=== PATIENT | female | born 1970 | race Caucasian/White ===

== ENCOUNTER 2019-03-02 20:01 | Inpatient (IN) | payer MEDICAID ==
[~2019-03-02] VITALS: Ht 170.2 cm; Wt 100.7 kg
[2019-03-02 20:05] VITALS: BP_SYST 130
[2019-03-02] MEDS ORDERED: MYL80 PO (21:05)
[2019-03-02] MEDS ORDERED: ONDA4TAB5 PO (21:05)
[2019-03-02] MEDS ORDERED: LEVE500T99 PO (21:05)
[2019-03-02] MEDS ORDERED: BISA5TAB10 RC (21:05)
[2019-03-02] MEDS ORDERED: LEVA1.2527 INH (21:05)
[2019-03-02] MEDS ORDERED: MELA3TAB64 PO (21:05)
[2019-03-02] MEDS ORDERED: LACT10SO6 PO (21:05)
[2019-03-02] MEDS ORDERED: GABA-531 PO ×2 (21:05)
[2019-03-02] MEDS ORDERED: POLY17PO4 PO (21:05)
[2019-03-02] MEDS ORDERED: DEC4 PO (21:05)
[2019-03-02] MEDS ORDERED: TOP25 PO (21:05)
[2019-03-02] MEDS ORDERED: ACET325C3 PO (21:05)
[2019-03-02] MEDS ORDERED: OXCA300T38 PO (21:05)
[2019-03-02] MEDS ORDERED: OXCA600T5 PO (21:05)
[2019-03-02] MEDS ORDERED: CA/D1TAB7 PO (21:05)
[2019-03-02] MEDS ORDERED: MORPHINE 4 MG/ML INJ. SYRINGE IVP ONE (22:00)
[2019-03-02 22:06] LABS: BASOPHILS # (AUTO) 0.1 K/uL (0.0-0.2); BASOPHILS % (AUTO) 0.8 % (0.0-2.0); EOSINOPHILS # (AUTO) 0.1 K/uL (0.0-0.4); EOSINOPHILS % (AUTO) 0.9 % (0.0-4.0); HEMATOCRIT 36.9 % (36-48); HEMOGLOBIN 12.5 g/dL (12.0-16.0); LYMPHOCYTES # (AUTO) 0.9 K/uL (1.0-5.5); LYMPHOCYTES % (AUTO) 8.8 % (20.5-51.5); MEAN CORPUSCULAR HEMOGLOBIN 34 pg (27-31); MEAN CORPUSCULAR HGB CONC 34 % (32-36); MEAN CORPUSCULAR VOLUME 101 fL (79.0-98.0); NEUTROPHILS # (AUTO) 7.7 K/uL (1.8-7.7); NEUTROPHILS % (AUTO) 79.5 % (40.0-70.0); PLATELET COUNT (AUTO) 199 K/uL (130-430); RED BLOOD CELL COUNT(AUTO) 3.66 MIL/uL (4.2-6.2); RED CELL DISTRIBUTION WIDTH 14.8 % (9.0-15.0); WHITE BLOOD COUNT (AUTO) 9.7 K/uL (4.8-10.8)
[2019-03-02 22:10] LABS: ANION GAP 8 (5-15); CHLORIDE 107 mmol/L (98-107); CREATININE 0.89 mg/dL (0.55-1.30); GLUCOSE 107 mg/dL (70-99); POTASSIUM 3.7 mmol/L (3.5-5.1); SODIUM SERUM 143 mmol/L (136-145); UREA NITROGEN, BLOOD 20 mg/dL (8-21)
[2019-03-02 22:16] LABS: ALANINE AMINOTRANSFERASE 93 U/L (12-78); ALBUMIN 3.1 g/dL (3.4-4.8); ASPARTATE AMINOTRANSFERASE 55 U/L (10-37); TOTAL BILIRUBIN 0.2 mg/dL (0.0-1.0)
[2019-03-02 22:19] LABS: GFR AFRICAN AMERICAN 86 mL/min (>90)
[2019-03-02 22:38] LABS: ALCOHOL, BLOOD < 3 mg/dL (<10)
[2019-03-02 23:28] LABS: PROTHROMBIN TIME 9.6 SECS (9.5-12.5)
[2019-03-03] MEDS ORDERED: TOPIRAMATE 100 MG TABLET(Topamax) PO ONE (01:00)
[2019-03-03] MEDS: OXcarbazepine 150 MG TABLET(TRILEPTAL) PO SCH ×3 (01:00→20:44)
[2019-03-03] MEDS ORDERED: levETIRAcetam 500 MG TABLET PO ONE ×2 (01:00→12:00)
[2019-03-03] MEDS ORDERED: HYDROcodone/ACETAMIN 5-325 MG TAB (NORCO/ VICODIN) PO PRN (02:30)
[2019-03-03] MEDS ORDERED: MORPHINE 2 MG/ML INJ. SYRINGE IVP PRN (02:30)
[2019-03-03] MEDS ORDERED: HYDROcodone/ACETAMIN 10-325 MG TAB PO PRN (02:30)
[2019-03-03] MEDS ORDERED: MORPHINE 2 MG/ML INJ. SYRINGE ONE (03:05)
[2019-03-03 03:20] VITALS: BP_SYST 127
[2019-03-03 05:41] LABS: BILIRUBIN,URINE NEGATIVE (NEGATIVE); BLOOD, URINE TRACE (NEGATIVE); CLARITY/URINE CLEAR (CLEAR); COLOR,URINE YELLOW (YELLOW); GLUCOSE,URINE NEGATIVE (NEGATIVE); KETONES,URINE NEGATIVE (NEGATIVE); LEUKOCYTE ESTERASE ,URINE NEGATIVE (NEGATIVE); NITRITE, URINE NEGATIVE (NEGATIVE); PROTEIN URINE NEGATIVE (NEGATIVE); UROBILINOGEN,URINE 0.2 (0.2-1.0)
[2019-03-03 05:43] LABS: BACTERIA,URINE FEW /HPF (None Seen); WBC,URINE 0-3 /HPF (0-3)
[2019-03-03] MEDS ORDERED: NON-FORMULARY MEDICATION (Acetaminophen 2 CAP) PO PRN (05:45)
[2019-03-03] MEDS ORDERED: ONDANSETRON 4 MG ODT TAB PO SCH (05:45)
[2019-03-03] MEDS ORDERED: ONDANSETRON HCL 4 MG/2 ML VIAL IVP PRN (05:45)
[2019-03-03] MEDS ORDERED: LORazepam 2 MG/ML VIAL IVP PRN (05:45)
[2019-03-03] MEDS: NORMAL SALINE 5 ML DISP.SYRIN IVF SCH ×6 (06:00→20:47)
[2019-03-03] MEDS: SIMETHICONE 80 MG TAB.CHEW PO SCH ×5 (06:08→20:53)
[2019-03-03] MEDS: PANTOPRAZOLE SODIUM 40 MG TAB PO SCH (06:08)
[2019-03-03 07:59] VITALS: BP_SYST 129
[2019-03-03] MEDS ORDERED: OXCARBAZEPINE PO SCH (09:00)
[2019-03-03] MEDS: GABAPENTIN 300 MG CAPSULE PO SCH ×2 (09:16→20:44)
[2019-03-03] MEDS: MORPHINE 4 MG/ML INJ. SYRINGE IVP PRN ×2 (09:25→21:48)
[2019-03-03 09:30] VITALS: BP_SYST 113
[2019-03-03] MEDS: levETIRAcetam 500 MG TABLET PO SCH ×2 (11:58→20:43)
[2019-03-03 12:47] VITALS: BP_SYST 118
[2019-03-03] MEDS: MORPHINE 2 MG/ML INJ. SYRINGE IVP PRN ×2 (13:19→15:52)
[2019-03-03 16:34] VITALS: BP_SYST 116
[2019-03-03 20:00] VITALS: BP_SYST 122
[2019-03-03] MEDS: ACETAMINOPHEN 325 MG TABLET PO PRN (20:46)
[2019-03-04] VITALS: BP_SYST 108
[2019-03-04 00:12] VITALS: BP_SYST 123
[2019-03-04] MEDS: MORPHINE 4 MG/ML INJ. SYRINGE IVP PRN ×4 (04:33→21:28)
[2019-03-04] MEDS: NORMAL SALINE 5 ML DISP.SYRIN IVF SCH ×6 (06:00→20:56)
[2019-03-04] MEDS: PANTOPRAZOLE SODIUM 40 MG TAB PO SCH ×2 (06:11→17:31)
[2019-03-04] MEDS: SIMETHICONE 80 MG TAB.CHEW PO SCH ×4 (06:12→20:55)
[2019-03-04 06:53] LABS: BASOPHILS % (AUTO) 0.3 % (0.0-2.0); EOSINOPHILS # (AUTO) 0.2 K/uL (0.0-0.4); EOSINOPHILS % (AUTO) 2.4 % (0.0-4.0); HEMATOCRIT 36.9 % (36-48); HEMOGLOBIN 12.3 g/dL (12.0-16.0); LYMPHOCYTES # (AUTO) 0.6 K/uL (1.0-5.5); LYMPHOCYTES % (AUTO) 7.1 % (20.5-51.5); MEAN CORPUSCULAR HEMOGLOBIN 34 pg (27-31); MEAN CORPUSCULAR HGB CONC 33 % (32-36); MEAN CORPUSCULAR VOLUME 102 fL (79.0-98.0); NEUTROPHILS # (AUTO) 6.1 K/uL (1.8-7.7); NEUTROPHILS % (AUTO) 77.2 % (40.0-70.0); PLATELET COUNT (AUTO) 173 K/uL (130-430); RED BLOOD CELL COUNT(AUTO) 3.61 MIL/uL (4.2-6.2); RED CELL DISTRIBUTION WIDTH 15.3 % (9.0-15.0); WHITE BLOOD COUNT (AUTO) 7.9 K/uL (4.8-10.8)
[2019-03-04 07:00] LABS: CALCIUM 8.7 mg/dL (8.4-11.0); CREATININE 0.88 mg/dL (0.55-1.30); POTASSIUM 3.7 mmol/L (3.5-5.1)
[2019-03-04] MEDS: MORPHINE 2 MG/ML INJ. SYRINGE IVP PRN (08:17)
[2019-03-04] MEDS: GABAPENTIN 300 MG CAPSULE PO SCH ×2 (08:19→20:55)
[2019-03-04] MEDS: levETIRAcetam 500 MG TABLET PO SCH ×2 (08:19→20:54)
[2019-03-04] MEDS: OXcarbazepine 150 MG TABLET(TRILEPTAL) PO SCH ×2 (09:39→20:55)
[2019-03-04 11:32] VITALS: BP_SYST 136
[2019-03-04 16:33] VITALS: BP_SYST 104
[2019-03-04 20:00] VITALS: BP_SYST 121
[2019-03-05] MEDS: ACETAMINOPHEN 325 MG TABLET PO PRN ×2 (00:04→20:16)
[2019-03-05 01:52] VITALS: BP_SYST 119
[2019-03-05] MEDS: MORPHINE 4 MG/ML INJ. SYRINGE IVP PRN ×3 (02:07→16:47)
[2019-03-05] MEDS: NORMAL SALINE 5 ML DISP.SYRIN IVF SCH ×4 (06:00→23:07)
[2019-03-05 06:11] LABS: CALCIUM 8.4 mg/dL (8.4-11.0); CREATININE 0.74 mg/dL (0.55-1.30); POTASSIUM 3.5 mmol/L (3.5-5.1)
[2019-03-05] MEDS: PANTOPRAZOLE SODIUM 40 MG TAB PO SCH ×2 (06:37→20:16)
[2019-03-05] MEDS: SIMETHICONE 80 MG TAB.CHEW PO SCH ×4 (06:37→21:00)
[2019-03-05 07:29] LABS: BASOPHILS % (AUTO) 0.5 % (0.0-2.0); EOSINOPHILS # (AUTO) 0.1 K/uL (0.0-0.4); EOSINOPHILS % (AUTO) 2.1 % (0.0-4.0); HEMOGLOBIN 11.7 g/dL (12.0-16.0); LYMPHOCYTES # (AUTO) 0.8 K/uL (1.0-5.5); LYMPHOCYTES % (AUTO) 12.2 % (20.5-51.5); MEAN CORPUSCULAR HEMOGLOBIN 34 pg (27-31); MEAN CORPUSCULAR HGB CONC 34 % (32-36); MEAN CORPUSCULAR VOLUME 102 fL (79.0-98.0); MONOCYTES # (AUTO) 0.7 K/uL (0.0-1.0); MONOCYTES % (AUTO) 10.9 % (1.7-9.3); NEUTROPHILS # (AUTO) 4.7 K/uL (1.8-7.7); NEUTROPHILS % (AUTO) 74.3 % (40.0-70.0); PLATELET COUNT (AUTO) 159 K/uL (130-430); RED BLOOD CELL COUNT(AUTO) 3.44 MIL/uL (4.2-6.2); RED CELL DISTRIBUTION WIDTH 14.4 % (9.0-15.0)
[2019-03-05 07:30] VITALS: BP_SYST 117
[2019-03-05 07:44] LABS: WHITE BLOOD COUNT (AUTO) 6.3 K/uL (4.8-10.8)
[2019-03-05] MEDS: OXcarbazepine 150 MG TABLET(TRILEPTAL) PO SCH ×2 (08:33→21:00)
[2019-03-05] MEDS: GABAPENTIN 300 MG CAPSULE PO SCH ×2 (08:33→23:07)
[2019-03-05] MEDS: levETIRAcetam 500 MG TABLET PO SCH ×2 (08:33→21:00)
[2019-03-05 12:35] VITALS: BP_SYST 117
[2019-03-05 16:48] VITALS: BP_SYST 123
[2019-03-05] MEDS: MORPHINE 2 MG/ML INJ. SYRINGE IVP PRN ×2 (20:18→23:42)
[2019-03-06 01:32] VITALS: BP_SYST 185
[2019-03-06] MEDS: MORPHINE 4 MG/ML INJ. SYRINGE IVP PRN ×4 (03:36→22:11)
[2019-03-06] MEDS: ACETAMINOPHEN 325 MG TABLET PO PRN ×4 (04:03→23:49)
[2019-03-06 06:11] LABS: BASOPHILS % (AUTO) 0.5 % (0.0-2.0); EOSINOPHILS # (AUTO) 0.2 K/uL (0.0-0.4); EOSINOPHILS % (AUTO) 2.7 % (0.0-4.0); HEMATOCRIT 36.9 % (36-48); HEMOGLOBIN 12.3 g/dL (12.0-16.0); LYMPHOCYTES # (AUTO) 0.7 K/uL (1.0-5.5); LYMPHOCYTES % (AUTO) 12.5 % (20.5-51.5); MEAN CORPUSCULAR HEMOGLOBIN 34 pg (27-31); MEAN CORPUSCULAR HGB CONC 34 % (32-36); MEAN CORPUSCULAR VOLUME 102 fL (79.0-98.0); MONOCYTES # (AUTO) 0.6 K/uL (0.0-1.0); NEUTROPHILS # (AUTO) 4.2 K/uL (1.8-7.7); NEUTROPHILS % (AUTO) 73.3 % (40.0-70.0); PLATELET COUNT (AUTO) 142 K/uL (130-430); RED BLOOD CELL COUNT(AUTO) 3.63 MIL/uL (4.2-6.2); RED CELL DISTRIBUTION WIDTH 14.9 % (9.0-15.0); WHITE BLOOD COUNT (AUTO) 5.8 K/uL (4.8-10.8)
[2019-03-06 06:23] LABS: CALCIUM 8.5 mg/dL (8.4-11.0); CREATININE 0.67 mg/dL (0.55-1.30); POTASSIUM 3.8 mmol/L (3.5-5.1)
[2019-03-06] MEDS: NORMAL SALINE 5 ML DISP.SYRIN IVF SCH ×3 (06:58→21:56)
[2019-03-06 07:04] LABS: TOTAL IRON BIND. CAPACITY 256 ug/dL (250-450)
[2019-03-06] MEDS: PANTOPRAZOLE SODIUM 40 MG TAB PO SCH ×2 (07:04→17:34)
[2019-03-06] MEDS: SIMETHICONE 80 MG TAB.CHEW PO SCH ×4 (07:04→21:57)
[2019-03-06 08:30] VITALS: BP_SYST 102
[2019-03-06] MEDS: GABAPENTIN 300 MG CAPSULE PO SCH ×2 (09:12→21:55)
[2019-03-06] MEDS: levETIRAcetam 500 MG TABLET PO SCH ×2 (09:12→21:57)
[2019-03-06] MEDS: OXcarbazepine 150 MG TABLET(TRILEPTAL) PO SCH ×2 (09:17→21:55)
[2019-03-06] MEDS: MORPHINE 2 MG/ML INJ. SYRINGE IVP PRN (11:54)
[2019-03-06 12:05] VITALS: BP_SYST 117
[2019-03-06 16:00] VITALS: BP_SYST 112
[2019-03-06 20:44] VITALS: BP_SYST 100
[2019-03-07 01:43] VITALS: BP_SYST 115
[2019-03-07 06:22] LABS: BASOPHILS % (AUTO) 0.4 % (0.0-2.0); EOSINOPHILS # (AUTO) 0.1 K/uL (0.0-0.4); EOSINOPHILS % (AUTO) 1.9 % (0.0-4.0); HEMATOCRIT 33.9 % (36-48); HEMOGLOBIN 11.4 g/dL (12.0-16.0); LYMPHOCYTES # (AUTO) 0.6 K/uL (1.0-5.5); LYMPHOCYTES % (AUTO) 8.2 % (20.5-51.5); MEAN CORPUSCULAR HEMOGLOBIN 34 pg (27-31); MEAN CORPUSCULAR HGB CONC 34 % (32-36); MEAN CORPUSCULAR VOLUME 101 fL (79.0-98.0); MONOCYTES # (AUTO) 0.8 K/uL (0.0-1.0); MONOCYTES % (AUTO) 10.3 % (1.7-9.3); NEUTROPHILS % (AUTO) 79.2 % (40.0-70.0); PLATELET COUNT (AUTO) 161 K/uL (130-430); RED BLOOD CELL COUNT(AUTO) 3.35 MIL/uL (4.2-6.2); RED CELL DISTRIBUTION WIDTH 14.8 % (9.0-15.0); WHITE BLOOD COUNT (AUTO) 7.6 K/uL (4.8-10.8)
[2019-03-07 06:44] LABS: CALCIUM 8.4 mg/dL (8.4-11.0); CREATININE 0.68 mg/dL (0.55-1.30); POTASSIUM 3.6 mmol/L (3.5-5.1)
[2019-03-07] MEDS: PANTOPRAZOLE SODIUM 40 MG TAB PO SCH ×2 (07:09→16:44)
[2019-03-07] MEDS: SIMETHICONE 80 MG TAB.CHEW PO SCH ×4 (07:09→21:19)
[2019-03-07] MEDS: NORMAL SALINE 5 ML DISP.SYRIN IVF SCH ×3 (07:09→21:21)
[2019-03-07 08:00] VITALS: BP_SYST 142
[2019-03-07] MEDS: MORPHINE 4 MG/ML INJ. SYRINGE IVP PRN ×3 (08:04→18:12)
[2019-03-07] MEDS: OXcarbazepine 150 MG TABLET(TRILEPTAL) PO SCH ×2 (08:43→21:20)
[2019-03-07] MEDS: GABAPENTIN 300 MG CAPSULE PO SCH ×2 (08:43→21:19)
[2019-03-07] MEDS: levETIRAcetam 500 MG TABLET PO SCH ×2 (08:43→21:19)
[2019-03-07] MEDS: ACETAMINOPHEN 325 MG TABLET PO PRN (09:00)
[2019-03-07] MEDS ORDERED: BENZOCAINE/MENTHOL 1 EACH LOZENGE MM PRN (09:45)
[2019-03-07 12:35] VITALS: BP_SYST 112
[2019-03-07] MEDS: KETOROLAC TROMETHAMINE 30 MG VIAL IVP PRN ×2 (14:26→21:21)
[2019-03-07 16:10] VITALS: BP_SYST 109
[2019-03-07 20:00] VITALS: BP_SYST 117
[2019-03-08 01:06] LABS: FOLATE (FOLIC ACID) 5.5 ng/mL (>3.0)
[2019-03-08 04:00] VITALS: BP_SYST 118
[2019-03-08] MEDS: SIMETHICONE 80 MG TAB.CHEW PO SCH ×3 (06:20→17:09)
[2019-03-08] MEDS: PANTOPRAZOLE SODIUM 40 MG TAB PO SCH ×2 (06:20→17:09)
[2019-03-08] MEDS: NORMAL SALINE 5 ML DISP.SYRIN IVF SCH ×2 (06:21→14:09)
[2019-03-08 06:44] LABS: CALCIUM 8.3 mg/dL (8.4-11.0); CREATININE 0.68 mg/dL (0.55-1.30); POTASSIUM 3.7 mmol/L (3.5-5.1)
[2019-03-08 06:49] LABS: BASOPHILS % (AUTO) 0.3 % (0.0-2.0); EOSINOPHILS # (AUTO) 0.2 K/uL (0.0-0.4); HEMOGLOBIN 10.9 g/dL (12.0-16.0); LYMPHOCYTES # (AUTO) 0.6 K/uL (1.0-5.5); LYMPHOCYTES % (AUTO) 7.3 % (20.5-51.5); MEAN CORPUSCULAR HEMOGLOBIN 34 pg (27-31); MEAN CORPUSCULAR HGB CONC 34 % (32-36); MEAN CORPUSCULAR VOLUME 101 fL (79.0-98.0); MONOCYTES # (AUTO) 0.8 K/uL (0.0-1.0); MONOCYTES % (AUTO) 10.6 % (1.7-9.3); NEUTROPHILS # (AUTO) 6.3 K/uL (1.8-7.7); NEUTROPHILS % (AUTO) 79.8 % (40.0-70.0); PLATELET COUNT (AUTO) 149 K/uL (130-430); RED BLOOD CELL COUNT(AUTO) 3.17 MIL/uL (4.2-6.2); RED CELL DISTRIBUTION WIDTH 14.9 % (9.0-15.0); WHITE BLOOD COUNT (AUTO) 7.9 K/uL (4.8-10.8)
[2019-03-08 08:42] VITALS: BP_SYST 126
[2019-03-08] MEDS: levETIRAcetam 500 MG TABLET PO SCH (09:56)
[2019-03-08] MEDS: KETOROLAC TROMETHAMINE 30 MG VIAL IVP PRN ×2 (09:56→17:09)
[2019-03-08] MEDS: GABAPENTIN 300 MG CAPSULE PO SCH (09:56)
[2019-03-08] MEDS: OXcarbazepine 150 MG TABLET(TRILEPTAL) PO SCH (10:08)
[2019-03-08 12:15] VITALS: BP_SYST 119
[2019-03-08] MEDS ORDERED: MORP15TA PO (13:40)
[2019-03-08 15:54] VITALS: BP_SYST 130
[2019-03-08 16:28] VITALS: BP_SYST 110
== END 2019-03-08 18:45 | DRG 340 ==
LOC: SED 20:01 → SMU 23:49
PROVIDERS: ADMIT Preventive Medicine Preventive Medicine/Occupational Environmental Medicine; ATTEND Preventive Medicine Preventive Medicine/Occupational Environmental Medicine
DX: S72.142A Displaced intertrochanteric fracture of left femur, initial encounter for closed fracture (principal); E44.1 Mild protein-calorie malnutrition; E83.52 Hypercalcemia; D64.9 Anemia, unspecified; E78.5 Hyperlipidemia, unspecified; E87.1 Hypo-osmolality and hyponatremia; R73.9 Hyperglycemia, unspecified; W05.0XXA Fall from non-moving wheelchair, initial encounter; R74.0 Nonspecific elevation of levels of transaminase and lactic acid dehydrogenase [LDH]; K21.9 Gastro-esophageal reflux disease without esophagitis; Z85.841 Personal history of malignant neoplasm of brain; I69.354 Hemiplegia and hemiparesis following cerebral infarction affecting left non-dominant side; Z79.899 Other long term (current) drug therapy; Y93.89 Activity, other specified; Y92.89 Other specified places as the place of occurrence of the external cause; Y99.8 Other external cause status
CPT/HCPCS: 36415; 72170-TC; 73502; 80048; 80053; 81000-TC; 82272; 82550-TC; 82607; 82746; 83540-TC; 83550-TC; 85025; 85610-TC; 85730-TC; 87081; 93005; 96374; 99285; G0482; J1885; J2060; J2270; J2405; Q0162

== ENCOUNTER 2019-04-10 12:07 | Inpatient (IN) | payer MEDICAID ==
[~2019-04-10] VITALS: Ht 167.6 cm; Wt 90.7 kg
[~2019-04-10 12:07] MED LIST: ACET325C3 PO; BISA5TAB10 RC; CA/D1TAB7 PO; DEC4 PO; GABA-531 PO; LACT10SO6 PO; LEVA1.2527 INH; LEVE500T99 PO; MELA3TAB64 PO; MORP15TA PO; MYL80 PO; ONDA4TAB5 PO; OXCA300T38 PO; POLY17PO4 PO; TOP25 PO
[2019-04-10 12:10] VITALS: BP_SYST 122
--- NOTE | 2019-04-10 12:31 | NUR ---
Patient to ER bed 3 to gown for evaluation. Side rails up. Report given to NASH Singh.
--- NOTE | 2019-04-10 12:34 | NUR ---
Pt brought by ambulance BLS, A&Ox4, pt has weakness on L side of body due to previous stroke, pt presents to ER with severe back pain not relieve by [place], respirations even and unlabored, pt has Hx of breast CA and brain CA, denies N/V, afebrile.
--- NOTE | 2019-04-10 12:58 | NUR ---
ER at bedside examining patient.
[2019-04-10] MEDS ORDERED: MORPHINE 4 MG/ML INJ. SYRINGE IM ONE (13:15)
--- NOTE | 2019-04-10 13:18 | NUR ---
medical technologist chemistry at bedside collecting blood specimen as ordered by Dr. Padilla.
[2019-04-10 13:40] LABS: BASOPHILS % (AUTO) 0.2 % (0.0-2.0); EOSINOPHILS % (AUTO) 0.1 % (0.0-4.0); HEMOGLOBIN 12.7 g/dL (12.0-16.0); LYMPHOCYTES # (AUTO) 0.4 K/uL (1.0-5.5); LYMPHOCYTES % (AUTO) 2.6 % (20.5-51.5); MEAN CORPUSCULAR HEMOGLOBIN 32 pg (27-31); MEAN CORPUSCULAR HGB CONC 33 % (32-36); MEAN CORPUSCULAR VOLUME 99 fL (79.0-98.0); MONOCYTES # (AUTO) 0.8 K/uL (0.0-1.0); MONOCYTES % (AUTO) 5.2 % (1.7-9.3); NEUTROPHILS # (AUTO) 15.2 K/uL (1.8-7.7); NEUTROPHILS % (AUTO) 91.9 % (40.0-70.0); PLATELET COUNT (AUTO) 175 K/uL (130-430); RED BLOOD CELL COUNT(AUTO) 3.93 MIL/uL (4.2-6.2); RED CELL DISTRIBUTION WIDTH 14.7 % (9.0-15.0); WHITE BLOOD COUNT (AUTO) 16.5 K/uL (4.8-10.8)
--- NOTE | 2019-04-10 13:44 | NUR ---
X-ray done at bedside as ordered by Dr. Padilla. Patient tolerated the procedure well.
[2019-04-10 14:27] LABS: CALCIUM 9.2 mg/dL (8.4-11.0); CREATININE 0.86 mg/dL (0.55-1.30); POTASSIUM 3.9 mmol/L (3.5-5.1)
[2019-04-10 14:32] LABS: ALBUMIN 3.2 g/dL (3.4-4.8); TOTAL BILIRUBIN 0.3 mg/dL (0.0-1.0)
--- NOTE | 2019-04-10 15:39 | NUR ---
# 16 FR In and Out catheter with use of sterile technique. Immediate return of 100 ml clear yellow urine noted. Urine sample collected and sent to lab. Pt tolerated procedure well. Patient unable to toilet self.
[2019-04-10] MEDS ORDERED: cefTRIAXone 1 GM IVPB PREMIX 50 ML IV ONE (15:45)
--- NOTE | 2019-04-10 15:53 | NUR ---
Patient will be admitted to care of Dr. Clancy. Admitted to [facility] unit. Will go to room 125A. Belongings list completed. Complete and up to date summary report printed. SBAR report to be given at bedside with opportunity for questions.
--- NOTE | 2019-04-10 16:00 | NUR ---
Administered Rocephin IVPB as ordered by Dr. Padilla. Patient tolerated the medication well.
[2019-04-10] MEDS ORDERED: ALBU2.5V7 INH (16:33)
--- NOTE | 2019-04-10 16:33 | NUR ---
Medication reconciliation completed with information provided by snf. Any prior medication reconciliation on file was reviewed and corrected.
--- NOTE | 2019-04-10 16:50 | NUR ---
Admission Note Received patient from ER with diagnosis of Pneumonia. Initial Plan of Care discussed-patient verbalized understanding. Family at bedside. Oriented to room, call light, pain management and safety.
[2019-04-10 17:06] VITALS: BP_SYST 123
--- NOTE | 2019-04-10 17:10 | NUR ---
Patient will be admitted to care of Dr. Gorman. Admitted to MS unit. Will go to room 125A. Belongings list completed. Complete and up to date summary report printed. SBAR report given to NASH Morales at bedside with opportunity for questions.
[2019-04-10] MEDS: OXYCODONE/ACETAMINOPHEN *10*mg/325 mg TABLET PO PRN ×2 (18:30→22:13)
--- NOTE | 2019-04-10 18:30 | NUR ---
closing note patient is resting in bed, eating dinner, alert and oriented, educated on pain medication use and side effects, patient verbalized understanding, bed in lowest position, side rails up, call light within reach, bed alarm on, IV dressing intact, no signs of distress at this time, fall/safety and aspiration precautions in place, will endorse report to noc shift nurse to continue with care, Dr Gorman was called for pain medications.
[2019-04-10 19:00] VITALS: BP_SYST 128
[2019-04-10] MEDS ORDERED: ONDANSETRON HCL 4 MG/2 ML VIAL IVP PRN (19:00)
--- NOTE | 2019-04-10 19:15 | NUR ---
change of shift.pt.present hx;cva;pt.presents lt.side paraplegia.pt presents activity status;bedrest,..pt.presents iv access rt.wrist;iv lock. pt.presents incontinent elimination status.bladder/bowel.pt presents room air respiratory status;breathing pattern irregular; slight labored. pt to be admitted to to be assessed per dr.hakak hussein.call light/telephone w/in reach of the pt.
--- NOTE | 2019-04-10 19:21 | NUR ---
CONSULTATION PAGED/CALLED Reason for Consultation: PNA Person Who was Notified: EXCHANGE Consulting Physician: GABRIELLE Sales Service Coordinator Specialty: Ordering Physician: SIMÓN
[2019-04-10 20:00] VITALS: BP_SYST 128
[2019-04-10] MEDS ORDERED: IPRATROPIUM/ALBUTEROL SULFATE 3 ML AMPUL.NEB (DUONEB) INH PRN (20:00)
--- NOTE | 2019-04-10 20:00 | NUR ---
pt assessed.v/s assessed;values w/in normal limits.pt.rest propensity to be loquacious;talkative.pt.clarified;pt.presents hx;cancer;brain but not breast.pt capable to convey needs/requests verbally but is repetative w/q's.respiratory status; o2-sat%=93%@room air.to re-assess the o2-sat%pt.assessed for cleanliness.pt.repositioned.diet status regular.i have apprised the pt. that snacks/beverages are available w/in the shift.pt.had requested andre crackers.i have provided the crackers. pt had stated she presents pain;lt.rib cage radiating to back;lt.flank.i apprised the pt.that she had received the administration of percocet ;10/325mg po 1 tab@1830p.pt.stated she presented pain status.to f/u re alternative pain medications.call light/telephone placed w/in reach of the pt.rt.side;hand. Addendum: 04/11/19 at 0804 by Atilio Amador RN pt.presents hx;seizures.i have placed the sx precautions;side rails padded;i have provided the indication for the bed-rail pads.i have placed a pt/nsg alert-sign:@the hob;rt\lt sided weakness.
[2019-04-10] MEDS ORDERED: ZOLPIDEM TARTRATE 5 MG TABLET PO PRN (20:15)
[2019-04-10] MEDS ORDERED: ACETAMINOPHEN 325 MG TABLET PO PRN (20:30)
[2019-04-10] MEDS: OXcarbazepine 150 MG TABLET(TRILEPTAL) PO SCH ×2 (21:00→22:56)
[2019-04-10] MEDS: TOPIRAMATE 25 MG TABLET(TOPAMAX) PO SCH (21:00)
[2019-04-10] MEDS ORDERED: TOPIRAMATE 25 MG TABLET(TOPAMAX) PO SCH (21:00)
[2019-04-10] MEDS: ENOXAPARIN SODIUM 40 MG/0.4 ML SYRINGE SUBCUT SCH (21:00)
--- NOTE | 2019-04-10 21:00 | NUR ---
2100p medications administered.pt.capable to ingest the po medications w/out difficulty. i have apprised the pt.that the pain med;percocet;10/325 mg po is due@2230p if necessary.
--- NOTE | 2019-04-10 21:30 | NUR ---
present,interviewing/assessing the pt.reviewing admit complaints symptomology.reviewing medication list hx. to f/u 's orders additional.
--- NOTE | 2019-04-10 22:00 | NUR ---
pt.assessed.pt.assessed for cleanliness.pt repositioned.i have administered percocet;10/325mg po 1 tab.to f/u re; re-assessment of the efficacy of the pain medication per pain mgx protocol.pt had requested andre crackers.i have provided the crackers. i have applied o2 therapy@2l/.min via nasal cannulae.o2-%=96%.call light/telephone placed w/in the reach of the pt.
[2019-04-10 22:06] VITALS: BP_SYST 123
[2019-04-10] MEDS: GABAPENTIN 300 MG CAPSULE PO SCH (22:56)
[2019-04-10] MEDS: DOCUSATE SODIUM 250 MG CAPSULE PO SCH (22:57)
[2019-04-10] MEDS: LACTULOSE 20 GM/30 ML UDC PO SCH (22:57)
[2019-04-10 23:22] VITALS: BP_SYST 136
[2019-04-10] MEDS ORDERED: BACLOFEN 10 MG TABLET PO SCH (23:30)
[2019-04-10] MEDS ORDERED: levETIRAcetam 500 MG TABLET PO SCH (23:55)
--- NOTE | 2019-04-11 | NUR ---
pt assessed.v/s assessed.values w/in normal limits;cardio;s.tachycardia. had order pt to be transferred to telemetry status . i have placed the athletic monitor.pt assessed for cleanliness.pt repositioned. abdi;cheko has reestablished iv access location lt.hand.i have initiated the administration iv fluids;ns@rate:60ml/hr.i have administered the levaquin;abx;ivpb.pt.had requested andre calderon.provided.call light/telephone apc led w/in th reach of the pt;rt.side;hand.
--- NOTE | 2019-04-11 01:00 | NUR ---
had returned the page. apprised of pt's requests for medication; ordered morphine:4mg ivp q-2hrs. i have administered the initial dose morphine:4mg ivp to f/u re;pain medication efficacy per pain mgx protocol.i have applied o2 therapy via nasal cannulae @the rate 2l/min .
[2019-04-11] MEDS: MORPHINE 2 MG/ML INJ. SYRINGE IVP PRN ×3 (01:14→05:55)
[2019-04-11] MEDS: NACL 0.9% 1,000 ML IV SCH ×2 (01:20→14:36)
--- NOTE | 2019-04-11 03:00 | NUR ---
pt assessed for cleanliness pt cleaned..pt repositioned iv access intact patent;iv fluids infusing.
--- NOTE | 2019-04-11 04:00 | NUR ---
pt assessed pt had requested medication pain.i have administered morphine:4mg ivp to f/u re;pain med efficacy per pain mgx protocol. pt requested.pt had requested ice water.i have provided the water.call light/telephone placed w/in reach of the pt.rt.side;hand.
[2019-04-11] MEDS: PANTOPRAZOLE SODIUM 40 MG TAB PO SCH (05:53)
[2019-04-11] MEDS ORDERED: clonazePAM 0.5 MG TABLET PO ONE (06:00)
[2019-04-11 06:16] LABS: CREATININE 0.88 mg/dL (0.55-1.30); POTASSIUM 3.7 mmol/L (3.5-5.1)
--- NOTE | 2019-04-11 06:18 | NUR ---
pt assessed.pt had requested medication;pain.i have administered morphine;4mg ivp.to f/u re pain medication efficacy.per pain mgx protocol. i have administered klonipine;0.5mg po,protonix;40mg po 0700a dose.pt assessed for cleanliness.pt repositioned.general status stable. respiratory status stable;o2-0sat%=96%.@2l/min vi a nasal cannulae.no requests posited @this hour;re;snacks/beverages.call light/ telephone placed w/in reach of the pt.rt.side;hand.
[2019-04-11 06:46] LABS: BASOPHILS % (AUTO) 0.4 % (0.0-2.0); EOSINOPHILS # (AUTO) 0.1 K/uL (0.0-0.4); EOSINOPHILS % (AUTO) 0.5 % (0.0-4.0); HEMATOCRIT 37.3 % (36-48); HEMOGLOBIN 12.1 g/dL (12.0-16.0); LYMPHOCYTES # (AUTO) 0.6 K/uL (1.0-5.5); LYMPHOCYTES % (AUTO) 5.1 % (20.5-51.5); MEAN CORPUSCULAR HEMOGLOBIN 33 pg (27-31); MEAN CORPUSCULAR HGB CONC 33 % (32-36); MEAN CORPUSCULAR VOLUME 100 fL (79.0-98.0); MONOCYTES # (AUTO) 1.2 K/uL (0.0-1.0); MONOCYTES % (AUTO) 9.5 % (1.7-9.3); NEUTROPHILS # (AUTO) 10.6 K/uL (1.8-7.7); NEUTROPHILS % (AUTO) 84.5 % (40.0-70.0); PLATELET COUNT (AUTO) 166 K/uL (130-430); RED BLOOD CELL COUNT(AUTO) 3.73 MIL/uL (4.2-6.2); RED CELL DISTRIBUTION WIDTH 14.7 % (9.0-15.0); WHITE BLOOD COUNT (AUTO) 12.6 K/uL (4.8-10.8)
--- NOTE | 2019-04-11 06:58 | NUR ---
Nutrition Update Hudson Scale 12 noted. Pt admitted for Pneumonia Diet: regular BMI: 32.3 kg/m2 RD to follow per nutrition care standards.
[2019-04-11] MEDS ORDERED: LORazepam 2 MG/ML VIAL IVP ONE (07:15)
--- NOTE | 2019-04-11 07:50 | NUR ---
am rounds: Patient is oriented x4. Complaints of frequent spasm. Left side weakness noted. Side rails are padded for seizure precautions. Call light within reach.
[2019-04-11 08:18] VITALS: BP_SYST 126
[2019-04-11] MEDS: OXcarbazepine 150 MG TABLET(TRILEPTAL) PO SCH ×4 (09:00→21:46)
[2019-04-11] MEDS ORDERED: OMEPRAZOLE Non-Formulary 20 MG CAPSULE.DR PO SCH ×2 (09:00)
[2019-04-11] MEDS: DOCUSATE SODIUM 250 MG CAPSULE PO SCH ×2 (09:17→21:45)
[2019-04-11] MEDS: GABAPENTIN 300 MG CAPSULE PO SCH ×3 (09:17→21:45)
[2019-04-11] MEDS: levETIRAcetam 500 MG TABLET PO SCH ×2 (09:17→21:45)
[2019-04-11] MEDS: LACTULOSE 20 GM/30 ML UDC PO SCH ×2 (09:17→21:45)
[2019-04-11] MEDS: BACLOFEN 10 MG TABLET PO SCH ×3 (09:18→21:46)
--- NOTE | 2019-04-11 10:30 | NUR ---
To CT : To CT for ct chest.
[2019-04-11 11:45] LABS: INR 1.1 (0.8-1.2); PROTHROMBIN TIME 10.9 SECS (9.5-12.5)
[2019-04-11 12:35] VITALS: BP_SYST 127
--- NOTE | 2019-04-11 13:30 | NUR ---
Rounds: Patient is asleep, no distress noted.
[2019-04-11] MEDS: OXYCODONE/ACETAMINOPHEN *10*mg/325 mg TABLET PO PRN ×2 (14:33→20:02)
--- NOTE | 2019-04-11 15:00 | NUR ---
Pain/spasm: Complaints of spasm and pain. Routine gabapentin and baclofen given at 1432, patient is now asleep.
[2019-04-11 16:14] VITALS: BP_SYST 130
--- NOTE | 2019-04-11 16:30 | NUR ---
ID consult called: for Dr. Ortez, regarding sepsis, ordered by Dr. Gorman, spoke with Diana face sheet faxed to office [phone]
--- NOTE | 2019-04-11 17:54 | NUR ---
IV start for CT chest angio Venous access is very poor on the left arm and patient refused right arm to be used.
--- NOTE | 2019-04-11 19:01 | NUR ---
END OF SHIFT: PICC line order received from Dr. Gorman. Patient's brother Kvng Horne signed the consent. Order given to maureen kamara. PICC NASH marino is aware.
[2019-04-11 19:21] LABS: INR 1.1 (0.8-1.2)
--- NOTE | 2019-04-11 19:30 | NUR ---
initial notes: pt is awake, alert, oriented x 4. n o pain at this time, stable. no sob. no distress. pt has on going ivf to left hand gauge 22- intact and patent. explain paln of care. pt agree and verbalized understanding. picc line at bedside to insert picc. line. family at bedside. needs attended, safety on. call light in reach. will monitor.
[2019-04-11 19:52] VITALS: BP_SYST 124
[2019-04-11] MEDS ORDERED: clonazePAM 0.5 MG TABLET PO SCH (21:00)
[2019-04-11] MEDS: ENOXAPARIN SODIUM 40 MG/0.4 ML SYRINGE SUBCUT SCH (21:00)
[2019-04-11] MEDS: TOPIRAMATE 25 MG TABLET(TOPAMAX) PO SCH (21:00)
[2019-04-11] MEDS: clonazePAM 0.5 MG TABLET PO SCH (21:46)
--- NOTE | 2019-04-11 22:00 | NUR ---
awake, alert. no pain. stable. needs attended. family at bedside. safety on. will monitor.
[2019-04-11] MEDS ORDERED: IOHEXOL 350 mgI/mL, 150 ML INFUS..BTL IV ONE (22:16)
--- NOTE | 2019-04-11 23:11 | NUR ---
MD SAEID BREAUX MD, DR. GR FOR ORDERS, SPOKE WITH ERVIN
--- NOTE | 2019-04-11 23:19 | NUR ---
SPOKE TO DR. GR, REPORT TO MD THE RESULT OF DOPPLER, MD ORDER TO DC LOVENOX AND START ELIQUIS 5MG PO BID, GIVE ONE DOSE NOW. INFORM MD THAT PT IS REFUSING LOVENOX DUE TO PT IS AFRAID OF BLEEDING IN HER BRAIN.
--- NOTE | 2019-04-11 23:30 | NUR ---
told pt per md order that her initial venous doppler reading is positive for dvt, and dr. roldan order eliquis 5mg po bid. explain what the medication is for. pt refused to take medication due to her hx of bleed on her brain. pt verbalized that dr. roldan needs to speak to her md at [place].
--- NOTE | 2019-04-11 23:48 | NUR ---
received call from outside pharmacist- stating that eliqius is not enough dose for dvt treatment, it should be 10mg bid
--- NOTE | 2019-04-12 | NUR ---
sleeping, no pain.no sob. not distress. stable. call light in reach. will monitor.
[2019-04-12 01:01] VITALS: BP_SYST 113
--- NOTE | 2019-04-12 02:00 | NUR ---
sleeping, no pain.no sob. not distress. ivf infusing well to right upper arm midline. stable. call light in reach. will monitor.
--- NOTE | 2019-04-12 02:18 | NUR ---
CONSULTATION PAGED/CALLED Reason for Consultation: SEPSIS Person Who was Notified: AIXA Consulting Physician: JONAH JACOB Ordering Physician: DR. GR FAXED FACESHEET TO DR. BROWN'S OFFICE f)[phone]
--- NOTE | 2019-04-12 04:00 | NUR ---
sleeping, no pain.no sob. not distress. stable. call light in reach. will monitor.
[2019-04-12] MEDS: OXYCODONE/ACETAMINOPHEN *10*mg/325 mg TABLET PO PRN ×3 (04:28→13:11)
[2019-04-12] MEDS: NACL 0.9% 1,000 ML IV SCH ×2 (04:34→21:01)
--- NOTE | 2019-04-12 06:00 | NUR ---
pt is awake, alert. watching tv. stable. no distress. call light in reach. will follow-up.
[2019-04-12] MEDS: PANTOPRAZOLE SODIUM 40 MG TAB PO SCH (06:32)
[2019-04-12 06:54] LABS: BASOPHILS % (AUTO) 0.5 % (0.0-2.0); EOSINOPHILS # (AUTO) 0.2 K/uL (0.0-0.4); EOSINOPHILS % (AUTO) 2.1 % (0.0-4.0); HEMATOCRIT 32.8 % (36-48); HEMOGLOBIN 10.8 g/dL (12.0-16.0); LYMPHOCYTES # (AUTO) 0.5 K/uL (1.0-5.5); LYMPHOCYTES % (AUTO) 5.8 % (20.5-51.5); MEAN CORPUSCULAR HEMOGLOBIN 33 pg (27-31); MEAN CORPUSCULAR HGB CONC 33 % (32-36); MEAN CORPUSCULAR VOLUME 99 fL (79.0-98.0); MONOCYTES # (AUTO) 0.8 K/uL (0.0-1.0); MONOCYTES % (AUTO) 8.5 % (1.7-9.3); NEUTROPHILS # (AUTO) 7.6 K/uL (1.8-7.7); NEUTROPHILS % (AUTO) 83.1 % (40.0-70.0); PLATELET COUNT (AUTO) 159 K/uL (130-430); RED BLOOD CELL COUNT(AUTO) 3.32 MIL/uL (4.2-6.2); RED CELL DISTRIBUTION WIDTH 14.9 % (9.0-15.0)
[2019-04-12 07:05] LABS: ALBUMIN 2.3 g/dL (3.4-4.8); CALCIUM 8.4 mg/dL (8.4-11.0); CREATININE 0.66 mg/dL (0.55-1.30); POTASSIUM 3.2 mmol/L (3.5-5.1); TOTAL BILIRUBIN 0.4 mg/dL (0.0-1.0)
--- NOTE | 2019-04-12 07:10 | NUR ---
closing: sleeping, wakes up. no pain. stable. ivf infusing well. needs attended the whole shift. bedside report given to am rn.
--- NOTE | 2019-04-12 07:25 | NUR ---
Opening note Received bedside SBAR report from retail shift manager RN, patient in bed resting, respirations even and unlabored, no acute distress noted at this time, bed in low and locked position with bed alarm on, call light in reach
[2019-04-12 07:39] LABS: WHITE BLOOD COUNT (AUTO) 9.1 K/uL (4.8-10.8)
[2019-04-12 08:00] VITALS: BP_SYST 123
[2019-04-12] MEDS: LACTULOSE 20 GM/30 ML UDC PO SCH ×2 (08:42→20:52)
[2019-04-12] MEDS: DOCUSATE SODIUM 250 MG CAPSULE PO SCH ×2 (08:44→20:52)
[2019-04-12] MEDS: BACLOFEN 10 MG TABLET PO SCH ×3 (08:44→20:53)
[2019-04-12] MEDS: GABAPENTIN 300 MG CAPSULE PO SCH ×3 (08:44→20:52)
[2019-04-12] MEDS: OXcarbazepine 150 MG TABLET(TRILEPTAL) PO SCH ×2 (08:45→20:52)
[2019-04-12] MEDS: levETIRAcetam 500 MG TABLET PO SCH ×2 (08:45→20:51)
--- NOTE | 2019-04-12 08:55 | NUR ---
PHYSICAL THERAPY ORDER WAS RECEIVED. CHART REVIEW INDICATED DOPPLER TEST TO RULE BLOOD CLOTS. NURSE CONFIRMED TEST IS POSITIVE AND THAT THE PATIENT IS REFUSING TO TAKE MEDICATION. ALSO, CHART INDICATES HEALING LEFT FEMORAL FRACTURE. NURSE TO REQUEST MD TO CLARIFY: WEIGHT BEARING PRECAUTION FOR THE LLE; AND DETERMINE SAFETY TO MOBILIZE THE PATIENT WITH PRESENT BLOOD CLOT AND REFUSAL OF MEDICATION.
[2019-04-12] MEDS ORDERED: APIXABAN 2.5 MG TABLET PO SCH (09:00)
--- NOTE | 2019-04-12 09:20 | NUR ---
RN Rounds Patient in bed resting, patient states pain is tolerable at this time, respirations even and unlabored on room air
[2019-04-12] MEDS: OXYCODONE/ACETAMINOPHEN 5-325 TABLET PO PRN (10:56)
--- NOTE | 2019-04-12 11:00 | NUR ---
Pain Management Patient complaint of pain, patient requesting PRN pain medications, educated patient on purpose and use of side effects, patient verbalized understanding
[2019-04-12 12:39] VITALS: BP_SYST 119
--- NOTE | 2019-04-12 14:30 | NUR ---
Spoke with Physician Informed Dr. Melissa Zaragoza of patients potassium level 3.2, and informed him that patient is refusing Eliquis, new orders received, verified with read back
[2019-04-12] MEDS ORDERED: ZOLPIDEM TARTRATE 5 MG TABLET PO PRN (14:45)
--- NOTE | 2019-04-12 14:45 | NUR ---
Spoke with patients family Spoke with patients brother Otto at bedside, patients brother aware that patient has been refusing Eliquis, patients and patients brother would like Dr. Melissa Zaragoza to contact neurologist Dr. Ronquillo for clearance to start Eliquis, patient has concerns of "brain bleeding"
[2019-04-12] MEDS ORDERED: POTASSIUM CHLORIDE 20 MEQ/PKT PACKET PO ONE (16:00)
--- NOTE | 2019-04-12 16:24 | NUR ---
Dietitian Recommendations * Recommend mechanical soft, chopped diet * Encourage increase PO intakes LP, RD Please refer to Nutrition Assessment for details. Addendum: 04/12/19 at [address] Amended: Links added.
[2019-04-12 16:27] VITALS: BP_SYST 114
--- NOTE | 2019-04-12 17:19 | NUR ---
Physician Rounds Dr. Melissa Zaragoza at patients bedside with patient, patient informed Dr. Melissa Zaragoza that she would like clearance from her neurologist Dr. Ronquillo before starting Eliquis, Dr. Zaragoza spoke with patients brother Otto, per patients brother he will contact Dr. Ronquillo and then call Dr. Melissa Zaragoza
[2019-04-12] MEDS ORDERED: BISACODYL 10 MG/SUPPOSITORY RC PRN (17:30)
--- NOTE | 2019-04-12 17:32 | NUR ---
CONSULTATION PAGED REASON FOR CONSULTATION:TRANSAMINITIS WAS CONSULT CALLED?Y PERSON WHO WAS NOTIFIED:CLARENCE CONSULTING PHYSICIAN:MALOU YEAGER TEST DEVELOPER SPECIALTY:GI TEST DEVELOPER PHONE NUMBER:[phone] REQUESTING PHYSICIAN:GABRIELLE MARIE
--- NOTE | 2019-04-12 17:36 | NUR ---
CONSULTATION PAGED REASON FOR CONSULTATION:DVT WAS CONSULT CALLED?Y PERSON WHO WAS NOTIFIED:MARCIN CONSULTING PHYSICIAN:ELIJAH ROSALES COUNSELING DEPARTMENT CHAIR SPECIALTY:ONCOLOGY, HEMATOLOGY COUNSELING DEPARTMENT CHAIR PHONE NUMBER:[phone] REQUESTING PHYSICIAN:GABRIELLE MARIE
--- NOTE | 2019-04-12 17:41 | NUR ---
CONSULTATION PAGED REASON FOR CONSULTATION:MUSCLE SPASMS WAS CONSULT CALLED?Y PERSON WHO WAS NOTIFIED:MARCIA CONSULTING PHYSICIAN:LAKHWINDER PAULINO CAR HOPPER SPECIALTY:NEURO CAR HOPPER PHONE NUMBER:[phone] REQUESTING PHYSICIAN:GABRIELLE MARIE
--- NOTE | 2019-04-12 19:10 | NUR ---
Closing Note Bedside SBAR report given to shift superintendent caustic cresylate RN, patient in bed resting, respirations even and unlabored on room air, bed in lowered and locked position with bed alarm on, call light within reach, endorsed care to shift superintendent caustic cresylate RN
--- NOTE | 2019-04-12 19:25 | NUR ---
initial notes: pt is awake, alert, oriented x 4. n o pain at this time, stable. no sob. no distress. pt has on going ivf to right upper arm midline- intact and patent. left hand iv lock gauge 22- intact and patent. explain plan of care. pt agree and verbalized understanding. needs attended, safety on. call light in reach. will monitor.
[2019-04-12 20:14] VITALS: BP_SYST 154
[2019-04-12] MEDS: TOPIRAMATE 25 MG TABLET(TOPAMAX) PO SCH (20:53)
[2019-04-12] MEDS: clonazePAM 0.5 MG TABLET PO SCH (20:53)
[2019-04-12] MEDS: APIXABAN 2.5 MG TABLET PO SCH (21:00)
[2019-04-12] MEDS: ONDANSETRON HCL 4 MG/2 ML VIAL IVP PRN (21:07)
--- NOTE | 2019-04-12 22:00 | NUR ---
pt has bm, after dulcolax supp. clean pt and change chux. reposition. call light in reach. will monitor.
[2019-04-12 23:52] VITALS: BP_SYST 117
--- NOTE | 2019-04-13 | NUR ---
pt had another bm. clean pt and chux chux and linen and gown. pt tolerate well. needs attended call light in reach. will monitor.
--- NOTE | 2019-04-13 02:00 | NUR ---
sleeping, no pain. no sob. not distress. safety on. will monitor.
--- NOTE | 2019-04-13 03:02 | NUR ---
pt call to be clean, pt has bm, clean pt and chux change. tolerate well needs attended. will monitor.
--- NOTE | 2019-04-13 04:00 | NUR ---
sleeping, comfortable, no sob. stable, safety on. call light in reach. will monitor.
[2019-04-13] MEDS: OXYCODONE/ACETAMINOPHEN *10*mg/325 mg TABLET PO PRN ×2 (05:15→14:59)
[2019-04-13] MEDS: PANTOPRAZOLE SODIUM 40 MG TAB PO SCH (05:36)
--- NOTE | 2019-04-13 06:00 | NUR ---
resting, no sign of pain after pain medication. no sob. stable. call light in reach. will monitor.
[2019-04-13 06:30] LABS: BASOPHILS % (AUTO) 0.4 % (0.0-2.0); EOSINOPHILS # (AUTO) 0.1 K/uL (0.0-0.4); HEMATOCRIT 31.4 % (36-48); HEMOGLOBIN 10.3 g/dL (12.0-16.0); LYMPHOCYTES # (AUTO) 0.6 K/uL (1.0-5.5); LYMPHOCYTES % (AUTO) 7.5 % (20.5-51.5); MEAN CORPUSCULAR HEMOGLOBIN 33 pg (27-31); MEAN CORPUSCULAR HGB CONC 33 % (32-36); MEAN CORPUSCULAR VOLUME 99 fL (79.0-98.0); MONOCYTES # (AUTO) 0.6 K/uL (0.0-1.0); MONOCYTES % (AUTO) 8.1 % (1.7-9.3); NEUTROPHILS # (AUTO) 6.1 K/uL (1.8-7.7); PLATELET COUNT (AUTO) 156 K/uL (130-430); RED BLOOD CELL COUNT(AUTO) 3.16 MIL/uL (4.2-6.2); RED CELL DISTRIBUTION WIDTH 14.5 % (9.0-15.0); WHITE BLOOD COUNT (AUTO) 7.4 K/uL (4.8-10.8)
--- NOTE | 2019-04-13 07:20 | NUR ---
closing: sleeping, wakes up. no pain. stable. ivf infusing well. needs attended the whole shift. bedside report given to am rn.
[2019-04-13 07:25] LABS: CALCIUM 8.4 mg/dL (8.4-11.0); CREATININE 0.64 mg/dL (0.55-1.30); POTASSIUM 3.4 mmol/L (3.5-5.1)
--- NOTE | 2019-04-13 07:30 | NUR ---
OPENING NOTES: RECEIVED PATIENT FROM MOVIE THEATER MANAGER NURSE. PATIENT IS AWAKE AND ALERT x4 LAYING DOWN IN BED. PATIENT STATES SHE HAS PAIN 5/10 IN HER RIBS. PATIENT IS TOLERATING OXYGEN AT ROOM AIR WITH NO SIGNS OF DISTRESS OR SHORTNESS OF BREATH NOTED. MIDLINE INTACT WITH NO SIGNS OF INFILTRATION WITH CLEAN, DRY DRESSING. PATIENT IN STABLE CONDITION. SAFETY, FALL, ASPIRATION AND SEIZURE PRECAUTIONS ARE IN PLACE. BED LOCKED IN LOWEST POSITION WITH CALL LIGHT IN REACH. WILL CONTINUE TO MONITOR PATIENT FOR ANY CHANGES.
[2019-04-13 07:43] LABS: ERYTHROCYTE SEDIMENTATION RATE 51 MM/HR (0-20)
[2019-04-13 08:27] LABS: C-REACTIVE PROTEIN QUANT 19.1 mg/dL (0-0.5)
[2019-04-13 08:35] VITALS: BP_SYST 115
[2019-04-13] MEDS: APIXABAN 2.5 MG TABLET PO SCH ×2 (09:00→21:00)
--- NOTE | 2019-04-13 10:05 | NUR ---
RN ROUNDS: PATIENT IS AWAKE AND ALERT x4 LAYING DOWN IN BED. PATIENT TOLERATING OXYGEN AT ROOM AIR WITH NO SIGNS OF DISTRESS OR SHORTNESS OF BREATH NOTED. PATIENT IN STABLE CONDITION. WILL CONTINUE TO MONITOR PATIENT FOR ANY CHANGES.
[2019-04-13] MEDS: levETIRAcetam 500 MG TABLET PO SCH ×2 (10:59→21:58)
[2019-04-13] MEDS: LACTULOSE 20 GM/30 ML UDC PO SCH ×2 (10:59→21:58)
[2019-04-13] MEDS: OXcarbazepine 150 MG TABLET(TRILEPTAL) PO SCH ×2 (10:59→22:08)
[2019-04-13] MEDS: GABAPENTIN 300 MG CAPSULE PO SCH ×3 (10:59→21:57)
[2019-04-13] MEDS: DOCUSATE SODIUM 250 MG CAPSULE PO SCH ×2 (11:00→21:58)
[2019-04-13] MEDS: BACLOFEN 10 MG TABLET PO SCH ×3 (11:00→21:57)
[2019-04-13] MEDS: OXYCODONE/ACETAMINOPHEN 5-325 TABLET PO PRN ×2 (11:01→22:09)
[2019-04-13] MEDS: ONDANSETRON HCL 4 MG/2 ML VIAL IVP PRN (11:01)
[2019-04-13 12:04] VITALS: BP_SYST 117
--- NOTE | 2019-04-13 12:15 | NUR ---
RN ROUNDS: PATIENT IS ASLEEP IN BED. NO SIGNS OF DISTRESS OR SHORTNESS OF BREATH NOTED. PATIENT IN STABLE CONDITION. WILL CONTINUE TO MONITOR PATIENT FOR ANY CHANGES.
[2019-04-13 12:34] VITALS: BP_SYST 117
[2019-04-13] MEDS ORDERED: POTASSIUM CHLORIDE 20 MEQ TAB.PRT.SR PO ONE (13:45)
--- NOTE | 2019-04-13 14:15 | NUR ---
RN ROUNDS: PATIENT IS AWAKE AND ALERT x4 LAYING DOWN IN BED. NO SIGNS OF DISTRESS OR SHORTNESS OF BREATH NOTED. PATIENT IN STABLE CONDITION. WILL CONTINUE TO MONITOR PATIENT FOR ANY CHANGES.
[2019-04-13] MEDS: NACL 0.9% 1,000 ML IV SCH (14:58)
--- NOTE | 2019-04-13 16:00 | NUR ---
RN ROUNDS: PATIENT IS AWAKE AND ALERT x4 LAYING DOWN IN BED. FAMILY AT BEDSIDE. PATIENT STATES "I AM DOING GOOD". NO SIGNS OF DISTRESS OR SHORTNESS OF BREATH NOTED. PATIENT IN STABLE CONDITION. WILL CONTINUE TO MONITOR PATIENT FOR ANY CHANGES.
[2019-04-13 17:11] VITALS: BP_SYST 117
--- NOTE | 2019-04-13 18:37 | NUR ---
CLOSING NOTES: PATIENT IS AWAKE AND ALERT x4 LAYING DOWN IN BED. PATIENT IS TOLERATING OXYGEN AT ROOM AIR WITH NO SIGNS OF DISTRESS OR SHORTNESS OF BREATH NOTED. MIDLINE INTACT WITH NO SIGNS OF INFILTRATION WITH CLEAN, DRY DRESSING. PATIENT IN STABLE CONDITION. SAFETY, FALL, ASPIRATION AND SEIZURE PRECAUTIONS REMAINED IN PLACE THROUGHOUT THE SHIFT. BED LOCKED IN LOWEST POSITION WITH CALL LIGHT IN REACH. WILL ENDORSE PATIENT CARE TO ONCOMING BANKING SERVICES ADVISOR NURSE.
[2019-04-13 19:30] VITALS: BP_SYST 111
--- NOTE | 2019-04-13 19:30 | NUR ---
Initial note RECEIVED ALERT & ORIENTED X 4. DENIES PAIN OR DISCOMFORT. NO SHORTNESS OF BREATH ON ROOM AIR. IV FLUID INFUSING TO LEFT UPPER ARM MIDLINE AT ORDERED RATE WITHOUT DIFFICULTY. INSTRUCTED ON USE FO CALL LIGHT & TO NOTIFY STAFF IF N NEED OF ASSISTANCE. VERBALIZED UNDERSTANDING. FALL PRECAUTIONS IN PLACE. BED IN LOW, LOCKED POSITION. BED ALARM ON.
[2019-04-13] MEDS: TOPIRAMATE 25 MG TABLET(TOPAMAX) PO SCH (21:00)
[2019-04-13] MEDS: clonazePAM 0.5 MG TABLET PO SCH (21:56)
--- NOTE | 2019-04-13 22:26 | NUR ---
pain C/o left rib pain rated 10/10. Percocet given as ordered.
[2019-04-14 01:27] VITALS: BP_SYST 119
[2019-04-14] MEDS: OXYCODONE/ACETAMINOPHEN *10*mg/325 mg TABLET PO PRN ×3 (06:55→22:48)
[2019-04-14] MEDS: NACL 0.9% 1,000 ML IV SCH ×2 (06:55→22:50)
[2019-04-14 07:34] LABS: CALCIUM 8.4 mg/dL (8.4-11.0); CREATININE 0.62 mg/dL (0.55-1.30); POTASSIUM 3.5 mmol/L (3.5-5.1)
[2019-04-14 07:37] LABS: BASOPHILS % (AUTO) 0.6 % (0.0-2.0); EOSINOPHILS # (AUTO) 0.2 K/uL (0.0-0.4); HEMATOCRIT 29.7 % (36-48); HEMOGLOBIN 9.9 g/dL (12.0-16.0); LYMPHOCYTES # (AUTO) 0.5 K/uL (1.0-5.5); LYMPHOCYTES % (AUTO) 9.2 % (20.5-51.5); MEAN CORPUSCULAR HEMOGLOBIN 33 pg (27-31); MEAN CORPUSCULAR HGB CONC 33 % (32-36); MEAN CORPUSCULAR VOLUME 99 fL (79.0-98.0); MONOCYTES # (AUTO) 0.5 K/uL (0.0-1.0); MONOCYTES % (AUTO) 8.7 % (1.7-9.3); NEUTROPHILS # (AUTO) 4.3 K/uL (1.8-7.7); NEUTROPHILS % (AUTO) 77.5 % (40.0-70.0); PLATELET COUNT (AUTO) 160 K/uL (130-430); RED CELL DISTRIBUTION WIDTH 14.6 % (9.0-15.0); WHITE BLOOD COUNT (AUTO) 5.6 K/uL (4.8-10.8)
--- NOTE | 2019-04-14 08:00 | NUR ---
AM rounds: Patient is asleep. NO signs of distress at this time. Seizure precautions in place. Call light within reach.
[2019-04-14 08:29] VITALS: BP_SYST 117
[2019-04-14] MEDS: BACLOFEN 10 MG TABLET PO SCH ×3 (08:31→22:48)
[2019-04-14] MEDS: PANTOPRAZOLE SODIUM 40 MG TAB PO SCH (08:31)
[2019-04-14] MEDS: LACTULOSE 20 GM/30 ML UDC PO SCH ×2 (08:32→22:47)
[2019-04-14] MEDS: levETIRAcetam 500 MG TABLET PO SCH ×2 (08:32→22:49)
[2019-04-14] MEDS: OXcarbazepine 150 MG TABLET(TRILEPTAL) PO SCH ×2 (08:32→23:00)
[2019-04-14] MEDS: DOCUSATE SODIUM 250 MG CAPSULE PO SCH ×2 (08:32→22:48)
[2019-04-14] MEDS: APIXABAN 2.5 MG TABLET PO SCH ×2 (08:33→21:00)
[2019-04-14] MEDS: GABAPENTIN 300 MG CAPSULE PO SCH ×3 (08:33→22:48)
[2019-04-14 09:03] LABS: ALANINE AMINOTRANSFERASE 60 U/L (12-78); ALBUMIN 2.2 g/dL (3.4-4.8); ASPARTATE AMINOTRANSFERASE 26 U/L (10-37); TOTAL BILIRUBIN 0.3 mg/dL (0.0-1.0)
[2019-04-14 09:09] LABS: BILIRUBIN,DIRECT < 0.1 mg/dL (0.0-0.3)
--- NOTE | 2019-04-14 09:10 | NUR ---
PHYSICAL THERAPY EVALUATION ON HOLD UNTIL BLE'S DVT TREATMENT PLAN HAS BEEN DETERMINED. DISCUSSED WITH THE PATIENT'S RN.
[2019-04-14 09:53] LABS: ERYTHROCYTE SEDIMENTATION RATE 50 MM/HR (0-20)
--- NOTE | 2019-04-14 10:06 | NUR ---
hematology rounds: Seen by Dr. Farr, informed him that IVC filter is not done here in the hospital. Also awaiting for patient's brother to call back to inform about the procedure.
--- NOTE | 2019-04-14 10:50 | NUR ---
MD notification: Informed Dr. Farr that patient's brother Kvng agreed to have IVC filter placement done. Cathy machine adjuster leader case trim is aware of DC to [facility] for IVC placement.
--- NOTE | 2019-04-14 11:18 | NUR ---
DC PLANNING: CM FAXED TRANSFER REQUEST FOR IVC FILTER PLACEMENT THIS PROCEDURE IS NOT DONE AT [facility]. CM FAXED TO THE FOLLOWING HOSPITALS: [facility] @ [facility] @ [facility] @ [facility] CM ATTEMPTED TO TRY [facility] @ SPOKE WITH CELESTINA (ADMITTING) STATED THAT THERE IR DOCTOR IS CURRENTLY OUT AND WILL BE BACK ON THURSDAY. THE PROCEDURE WILL ALSO NEED TO BE SCHEDULED PER CELESTINA. Addendum: 04/14/19 at 1235 by Cathy Gilmore RN RECEIVED A CALL FROM SANDY (TRANSFER NURSE AT [facility]). OBTAINED INFORMATION. Addendum: 04/14/19 at 1257 by Cathy Gilmore RN CM SPOKE WITH DR. FORD REGARDING TRANSFER DIAGNOSIS. PER DR. FORD TRANSFER DIAGNOSIS IS DVT CM CONTACTED [facility] TRANSFER [facility]. SPOKE WITH SANDY (TRANSFER NURSE) AND PROVIDED TRANSFER DIAGNOSIS. PER SANDY, WILL BE WORKING ON THE CASE. Addendum: 04/14/19 at 1502 by Cathy Gilmore RN F/U WITH [facility] @ . SPOKE WITH MICHELLE (TRANSFER NURSE), WHO STATED THEY DO NOT HAVE ANY TELEMETRY BED AT THIS TIME. WILL CALL BACK IF BED BECOMES AVAILABLE LATER TONIGHT OR TOMORROW. Addendum: 04/14/19 at 1610 by Cathy Gilmore RN FOLLOW UP WITH [facility] , SPOKE WITH SANDY, WHO STATED CASE IS STILL CURRENTLY ON REVIEW.
[2019-04-14 12:00] VITALS: BP_SYST 98
[2019-04-14 15:10] LABS: ANTI NUCLEAR AB WITH REFLEX Negative (Negative)
--- NOTE | 2019-04-14 15:12 | NUR ---
DC PLANNING: CM FAXED TRANSFER REQUEST TO [facility] @ [facility] P . SPOKE WITH KIA (CERTIFIED NURSE OPERATING ROOM) STATED THEY WILL REVIEW THE CASE AND WILL CALL BACK.
--- NOTE | 2019-04-14 15:30 | NUR ---
MIDLINE care: Dressing is soiled. Cleansed site with swab provided in the kit. No redness, no leaking noted. Secured with clear adhesive dressing.
[2019-04-14 16:00] VITALS: BP_SYST 102
--- NOTE | 2019-04-14 18:26 | NUR ---
End of shift: Needs attended. No change in assessment.
[2019-04-14 21:00] VITALS: BP_SYST 125
[2019-04-14] MEDS: TOPIRAMATE 25 MG TABLET(TOPAMAX) PO SCH (21:00)
--- NOTE | 2019-04-14 22:45 | NUR ---
BED BATH GIVEN PATIENT URINATE IN LININ , ASSIST TO TURN LININ CHANGE IMPLEMENTED .
[2019-04-14] MEDS: clonazePAM 0.5 MG TABLET PO SCH (22:49)
--- NOTE | 2019-04-15 00:14 | NUR ---
Refuse patient Refuse to use bed aguilar for urine collection .
--- NOTE | 2019-04-15 00:18 | NUR ---
PERCOCET 10/325 MG PO GIVEN FOR PAIN CONTROL 10/27 & HELPFUL .
--- NOTE | 2019-04-15 00:35 | NUR ---
[facility] called and said they have been waiting for the pt. i informed them that we never recived a call that they had a bed. [facility] gave me the info pt going to room 360 station 1 tele floor accepting doctor is Doctor Stein give report is [phone].
--- NOTE | 2019-04-15 01:20 | NUR ---
COMMUNICATION WITH FAMILY AND PATIENT PATIENT'S BROTHER JOHNY HAN IS CALLED AT THIS TIME, IT WAS COMMUNICATED TO HIM THAT THERE IS A BED AVAILABLE AT [facility] IF HIM AND THE PATIENT ARE AGREEABLE. BOTH PATIENT AND HER BROTHER JOHNY VERBALIZED THEY ARE AWARE ABOUT TRANSFERRING FOR IVC PLACEMENT, THEY ARE BOTH AGREEABLE FOR TRANSFER AT THIS TIME, TRANSFER ACKNOWLEDGEMENT SIGNED AT THIS TIME. PATIENT'S PRIMARY RN ARTEMIO RAO AWARE.
--- NOTE | 2019-04-15 01:30 | NUR ---
paged paged doctor lauraal for dc order
--- NOTE | 2019-04-15 01:31 | NUR ---
COMMUNICATION WITH Easton GUTIERREZ. Melissa GUTIERREZ HAS BEEN MADE AWARE OF BED AVAILABLE AT [facility] FOR IVC PLACEMENT; MD GAVE ORDERS FOR DISCHARGE. ORDER READ BACK, VERIFIED, AND COMMUNICATED. PATIENT WILL BE PREPARED FOR TRANSFER AT THIS TIME. PATIENT'S PRIMARY RN, ARTEMIO RAO AWARE.
[2019-04-15 01:32] VITALS: BP_SYST 121
--- NOTE | 2019-04-15 01:33 | NUR ---
[facility] called and spoke with dispatch for transport with tele. filler picker is for [phone]
--- NOTE | 2019-04-15 01:52 | NUR ---
[place] [facility] [place] WITH ERIN RN SBAR REPORT GIVEN REGARDING TRANSFER FOR PROCEDURE [phone] .
[2019-04-15 02:05] VITALS: BP_SYST 132
--- NOTE | 2019-04-15 02:35 | NUR ---
PATIENT D/C TO [facility] ALS ORDERS CARRIED OUT .
[2019-04-15 06:06] LABS: HEPATITIS A AB, IgM Negative (Negative); HEPATITIS B CORE AB, IgM Negative (Negative); HEPATITIS B SURFACE AG Negative (Negative)
[2019-04-17 13:06] LABS: ANTI-SMOOTH MUSCLE AB 13 Units (0-19)
[2019-04-24 17:40] LABS: CERULOPLASMIN 49.6 mg/dL (19.0-39.0)
== END 2019-04-15 02:23 | disposition short-term general hospital (02) | DRG 720 ==
LOC: SED 12:07 → SMU 15:49 → STU 20:50
PROVIDERS: ADMIT Internal Medicine; ATTEND Preventive Medicine Preventive Medicine/Occupational Environmental Medicine
PROC: 05HY33Z Insertion of Infusion Device into Upper Vein, Percutaneous Approach (ICD-10-PCS; principal; 2019-04-11)
PROC: B54MZZA Ultrasonography of Right Upper Extremity Veins, Guidance (ICD-10-PCS; 2019-04-11)
DX: A41.9 Sepsis, unspecified organism (principal); E43 Unspecified severe protein-calorie malnutrition; J18.9 Pneumonia, unspecified organism; I82.433 Acute embolism and thrombosis of popliteal vein, bilateral; C71.9 Malignant neoplasm of brain, unspecified; E87.1 Hypo-osmolality and hyponatremia; I69.354 Hemiplegia and hemiparesis following cerebral infarction affecting left non-dominant side; D64.9 Anemia, unspecified; E66.9 Obesity, unspecified; E87.6 Hypokalemia; G40.909 Epilepsy, unspecified, not intractable, without status epilepticus; G89.4 Chronic pain syndrome; I82.449 Acute embolism and thrombosis of unspecified tibial vein; J98.11 Atelectasis; M41.9 Scoliosis, unspecified; M48.54XA Collapsed vertebra, not elsewhere classified, thoracic region, initial encounter for fracture; R73.9 Hyperglycemia, unspecified; Y95 Nosocomial condition; Z85.3 Personal history of malignant neoplasm of breast; Z85.841 Personal history of malignant neoplasm of brain; Z79.899 Other long term (current) drug therapy; Z68.32 Body mass index [BMI] 32.0-32.9, adult; I82.443 Acute embolism and thrombosis of tibial vein, bilateral
CPT/HCPCS: 36415; 71045; 71250-TC; 71275; 72100-TC; 72128; 72131; 73521; 76700-TC; 80048; 80053; 80074; 80076; 82390; 83516; 83605; 85025; 85379; 85610-TC; 85651-TC; 85730-TC; 86038; 86140; 87040-TC; 87081; 93970; 94640; 96365; 96372; 99285; C1751; G0378; G0480; J0696; J1956; J2270; J2405; J7030; J7620; Q9967

== ENCOUNTER 2021-12-16 18:58 | Emergency (ER) | payer OTHER, MEDICAID ==
[~2021-12-16] VITALS: Ht 177.8 cm; Wt 57.6 kg
[~2021-12-16 18:58] MED LIST changes: -ACET325C3 PO; +ACET325C5 PO; +ALBU2.5V7 INH; -GABA-531 PO; -LEVA1.2527 INH; -MELA3TAB64 PO; -MYL80 PO; -ONDA4TAB5 PO; -POLY17PO4 PO
[2021-12-16 19:10] VITALS: BP_SYST 95
--- NOTE | 2021-12-16 19:10 | NUR ---
PATIENT TRIAGED AND SENT DIRECTLY TO CT SCAN. CODE STROKE CALLED AT THIS TIME.
--- NOTE | 2021-12-16 19:10 | NUR ---
ER at bedside examining patient.
--- NOTE | 2021-12-16 19:22 | NUR ---
Placed in room 06 . Placed on monitoring engineer, blood pressure machine and pulse oximeter. To gown for exam. Side rails up.
--- NOTE | 2021-12-16 19:25 | NUR ---
PATIENT BROUGHT IN ALS FROM [facility] FOR ALTERED LEVEL OF CONSCIOUSNESS SINCE 1500 TODAY. 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 PER EMS PATIENT IS ABLE TO HAVE NORMAL CONVERSATION WITH NO SLURRED SPEECH. ON EMS ARRIVAL ON SCENE, SHE WAS GCS OF 4 BUT IN ROUTE HAS BECOME MORE AWAKE. PATIENT IS NON VERBAL UPON ARRIVAL BUT NOW IS HUMMING AND HAVING SLURRED UNINTELLIGIBLE SPEECH. PATIENT HAS CRAINOTOMY SCAR TO THE RIGHT SIDE. PATIENT ARRIVED WITH 20 G ANGIOCATH ON RIGHT HAND AND WAS GIVEN 250 ML OF NORMAL SALINE EN ROUTE. RIGHT NEPHROSTOMY TUBE NOTED WITH CLOUDY PINK URINE AND LARGE AMOUNT OF SEDIMENT NOTED. PATIENT IS A FULL CODE. VSS. INITIAL NIHSS SCORE IS 20
--- NOTE | 2021-12-16 19:35 | NUR ---
# 20 gauge angiocath placed to LEFT HAND. Use of asceptic technique. Opsite placed over site. Blood return noted. Blood for lab drawn from site. Flushed with 10 cc of normal saline. No evidence of infiltration noted. Patient tolerated well.
--- NOTE | 2021-12-16 19:44 | NUR ---
PATIENT CT SHOWS PROBABLY HEMORRHAGIC MASS IN THE RIGHT FRONTAL LOBE WITH EXUBERANT PERLISIONAL VASOGENIC EDEMA AND EVOLVING ACUTE INFARCTS IN THE BASAL GANGLIA, RESULTING IN MILD MASS EFFECT WITH 3 MM OF RIGHT TO LEFT MIDLINE SHIFT.
--- NOTE | 2021-12-16 20:08 | NUR ---
SPEAKING TO ARTEMIO, PATIENT'S BROTHER, REGARDING PATIENT'S CONDITION.
[2021-12-16 20:10] LABS: BASOPHILS # (AUTO) 0.1 K/uL (0.0-0.2); BASOPHILS % (AUTO) 0.6 % (0.0-2.0); EOSINOPHILS # (AUTO) 0.5 K/uL (0.0-0.4); EOSINOPHILS % (AUTO) 3.7 % (0.0-4.0); HEMATOCRIT 34.4 % (36-48); HEMOGLOBIN 11.2 g/dL (12.0-16.0); LYMPHOCYTES # (AUTO) 1.4 K/uL (1.0-5.5); MEAN CORPUSCULAR HEMOGLOBIN 30 pg (27-31); MEAN CORPUSCULAR HGB CONC 33 % (32-36); MEAN CORPUSCULAR VOLUME 91 fL (79.0-98.0); MONOCYTES # (AUTO) 0.7 K/uL (0.0-1.0); NEUTROPHILS # (AUTO) 11.2 K/uL (1.8-7.7); NEUTROPHILS % (AUTO) 80.7 % (40.0-70.0); PLATELET COUNT (AUTO) 271 K/uL (130-430); RED BLOOD CELL COUNT(AUTO) 3.78 MIL/uL (4.2-6.2); RED CELL DISTRIBUTION WIDTH 19.5 % (9.0-15.0); WHITE BLOOD COUNT (AUTO) 13.8 K/uL (4.8-10.8)
[2021-12-16] MEDS ORDERED: NACL 0.9% 1,000 ML IV ONE (20:30)
[2021-12-16 21:01] LABS: ANION GAP 11 (5-15); CALCIUM 9.8 mg/dL (8.4-11.0); CHLORIDE 111 mmol/L (98-107); GLUCOSE 117 mg/dL (70-99); POTASSIUM 4.6 mmol/L (3.5-5.1); SODIUM SERUM 144 mmol/L (136-145); UREA NITROGEN, BLOOD 48 mg/dL (8-21)
[2021-12-16 21:02] LABS: GFR AFRICAN AMERICAN 27 mL/min (>90)
--- NOTE | 2021-12-16 21:02 | NUR ---
PATIENT TO BE TRANSFERRED TO [facility] ACCEPTING ER MD MALLORY, NEUROLOGY WENDY AND NEUROSURGEON ALEJA. AWAITING ALS TRANSFER
[2021-12-16 21:05] LABS: INR 1.1 (0.8-1.2); PROTHROMBIN TIME 11.1 SECS (9.5-12.5)
[2021-12-16 21:16] LABS: ALANINE AMINOTRANSFERASE 11 U/L (12-78); ALBUMIN 2.4 g/dL (3.4-4.8); ASPARTATE AMINOTRANSFERASE 7 U/L (10-37); TOTAL BILIRUBIN 0.2 mg/dL (0.0-1.0)
--- NOTE | 2021-12-16 21:37 | NUR ---
report given to Hernando Correa for continuation of care.
--- NOTE | 2021-12-16 22:12 | NUR ---
PT LAYING IN BED WITH EYES OPEN, FIDGETING WITH BLANKET, VSS. NO ACUTE DISTRESS NOTED.
[2021-12-16] MEDS ORDERED: cefTRIAXone 1 GM IVPB PREMIX 50 ML IV ONE (22:15)
--- NOTE | 2021-12-16 22:30 | NUR ---
UA WALKED TO LAB
[2021-12-16 23:28] LABS: BILIRUBIN,URINE NEGATIVE (NEGATIVE); BLOOD, URINE 3+ (NEGATIVE); COLOR,URINE YELLOW (YELLOW); GLUCOSE,URINE NEGATIVE (NEGATIVE); KETONES,URINE NEGATIVE (NEGATIVE); LEUKOCYTE ESTERASE ,URINE 3+ (NEGATIVE); NITRITE, URINE NEGATIVE (NEGATIVE); PROTEIN URINE 3+ (NEGATIVE); UROBILINOGEN,URINE 0.2 (0.2-1.0)
[2021-12-16 23:31] LABS: CLARITY/URINE HAZY (CLEAR)
[2021-12-16 23:45] LABS: BACTERIA,URINE FEW /HPF (None Seen)
[2021-12-16 23:46] LABS: MUCUS,URINE 1+ /LPF (None Seen)
--- NOTE | 2021-12-16 23:59 | NUR ---
PT LAYING IN BED WITH EYES CLOSED, SNORING, VSS. VISABLE RISE AND FALL OF CHEST.
--- NOTE | 2021-12-17 00:59 | NUR ---
PT LAYING IN BED WITH EYES CLOSED, VISABLE RISE AND FALL OF CHEST.
[2021-12-17] MEDS ORDERED: NACL 0.9% 1,000 ML IV ONE ×2 (02:30)
--- NOTE | 2021-12-17 03:24 | NUR ---
pt intermittently opening and closing eyes while laying in bed. no acute distress. vss
--- NOTE | 2021-12-17 04:14 | NUR ---
PT AWAKE AND TALKING, "GOOD MORNING." WHEN ASKED HOW PT WAS DOING SHE RESPONDED, "BETTER." PT STABLE
--- NOTE | 2021-12-17 05:29 | NUR ---
Patient to be transferred to [facility]. Pt is being transferred due to higher level of care. Receiving facility has accepting physician and available space. ER physician has signed transfer form. Patient or responsible alliance party has agreed to transfer and signed form. Patient belongings inventoried and will be sent with patient. Copy of nursing notes, lab reports, EKG, Physicians Orders and X-rays to be sent with patient. Report called to Hiren at receiving facility. Receiving physician is Ovidio. [facility] has been called for transfer. Eta 2 hours
--- NOTE | 2021-12-17 05:51 | NUR ---
ASSUME CARE OF THIS PATIENT AWAKE PER PREVOU RN PT AT [facility] BASELINE MENTLA STATUS. PER REPORT RECEIVED PT WILL BE TRANSFERRING TO [facility] AND REPORT WAS GIVEN NOTED LOW BP 80'S SYSTOLIC, PER RN RECEIVING FACILITY AND HOSPITAL WERE AWARE AND IT WAS REPORTED. PER RN IVF WA GIVEN INCLUDING ANTIBIOTICS AND NO OTHER TREATMENT WAS ORDERED. WILL CONTINUE TO MONITOR PT.
[2021-12-17 06:09] VITALS: BP_SYST 116
[2021-12-17 06:14] LABS: ANION GAP 9 (5-15); BASOPHILS # (AUTO) 0.1 K/uL (0.0-0.2); CALCIUM 8.7 mg/dL (8.4-11.0); CHLORIDE 115 mmol/L (98-107); CREATININE 2.12 mg/dL (0.55-1.30); EOSINOPHILS # (AUTO) 0.5 K/uL (0.0-0.4); EOSINOPHILS % (AUTO) 4.5 % (0.0-4.0); GLUCOSE 87 mg/dL (70-99); HEMATOCRIT 28.1 % (36-48); HEMOGLOBIN 9.2 g/dL (12.0-16.0); LYMPHOCYTES % (AUTO) 9.9 % (20.5-51.5); MEAN CORPUSCULAR HEMOGLOBIN 31 pg (27-31); MEAN CORPUSCULAR HGB CONC 33 % (32-36); MEAN CORPUSCULAR VOLUME 93 fL (79.0-98.0); MONOCYTES # (AUTO) 0.6 K/uL (0.0-1.0); MONOCYTES % (AUTO) 5.4 % (1.7-9.3); NEUTROPHILS # (AUTO) 8.2 K/uL (1.8-7.7); NEUTROPHILS % (AUTO) 79.2 % (40.0-70.0); PLATELET COUNT (AUTO) 254 K/uL (130-430); RED BLOOD CELL COUNT(AUTO) 3.01 MIL/uL (4.2-6.2); SODIUM SERUM 146 mmol/L (136-145); UREA NITROGEN, BLOOD 39 mg/dL (8-21); WHITE BLOOD COUNT (AUTO) 10.4 K/uL (4.8-10.8)
[2021-12-17 06:17] LABS: GFR AFRICAN AMERICAN 31 mL/min (>90)
[2021-12-17 06:20] LABS: ALANINE AMINOTRANSFERASE 10 U/L (12-78); ASPARTATE AMINOTRANSFERASE 9 U/L (10-37); TOTAL BILIRUBIN < 0.1 mg/dL (0.0-1.0)
--- NOTE | 2021-12-17 07:02 | NUR ---
TRANSFER PT TO [facility] VIA [facility] TRANPORT. REPORT GIVEN TO BEN FROM [facility]. PT AWAKE AND ALERT, ON HER BASELINE MENTAL STATUS DURING TRANSFER.
== END 2021-12-17 07:04 | disposition short-term general hospital (02) ==
LOC: SED 18:58
DX: C71.9 Malignant neoplasm of brain, unspecified (principal); R41.82 Altered mental status, unspecified; N28.9 Disorder of kidney and ureter, unspecified; Z79.899 Other long term (current) drug therapy; Z20.822 Contact with and (suspected) exposure to COVID-19
CPT/HCPCS: 99285; 96365; 70450; 71045; 96361 ×2; 87426; 81000; 82962; 85025; 85610; 85730; 87040; 87086; 84484; 36415; 93005; 76376; 83605; 87804 ×2; 80053; J0696; J7030